=== PATIENT | male | born 1995 | race Caucasian/White ===

== ENCOUNTER 2021-11-17 03:56 | Emergency (ER) | payer SELFPAY ==
[2021-11-17] MEDS ORDERED: Diphtheria,Pertussis(Acell),Tetanus Vaccine 0.5 ML Syringe IM ONE (04:23)
[2021-11-17] MEDS ORDERED: Lidocaine 1% 10 ML MDV INJECT ONE (04:23)
== END 2021-11-17 05:00 | disposition home or self-care (01) ==
LOC: JD.ED 03:56
DX: S71.111A Laceration without foreign body, right thigh, initial encounter (principal); I10 Essential (primary) hypertension; Z23 Encounter for immunization; X58.XXXA Exposure to other specified factors, initial encounter
CPT/HCPCS: 12001; 90471; 90715; 99283; 99283-25

== ENCOUNTER 2022-05-28 15:25 | Emergency (ER) | payer MEDICAID ==
[2022-05-28] MEDS ORDERED: Lidocaine 1% 5 ML VIAL INJECT ONE (15:56)
[2022-05-28] MEDS ORDERED: Lidocaine 1% 10 ML MDV ONE (15:59)
[2022-05-28] MEDS ORDERED: Lidocaine 1% 10 ML MDV INJECT ONE (16:01)
== END 2022-05-28 16:58 | disposition home or self-care (01) ==
LOC: JD.ED 15:25
DX: K02.9 Dental caries, unspecified (principal); K00.7 Teething syndrome; I10 Essential (primary) hypertension
CPT/HCPCS: 64400; 99282; J3490